=== PATIENT | female | born 1990 | race American Indian/Alaskan Native ===

== ENCOUNTER 2019-09-02 17:53 | Emergency (ER) | payer SELFPAY ==
[2019-09-02] MEDS ORDERED: NACL 0.9% 1000 ML 1,000 ML IV ONE (19:45)
[2019-09-02] MEDS ORDERED: ZOFRAN IV STA (19:45)
--- NOTE | 2019-09-02 19:45 | Emergency Department Report ---
Blank Doc - Documentation Documentation: Woke with sweats, chills, shaking, vomiting, and productive cough. This initial assessment/diagnostic orders/clinical plan/treatment(s) is/are subject to change based on patient's health status, clinical progression and re- assessment by fellow clinical providers in the ED. Further treatment and workup at subsequent clinical providers discretion. Patient/guardians urged not to elope from the ED as their condition may be serious if not clinically assessed and managed. Initial orders include: tachycardia labs and fluids
[2019-09-02 20:14] LABS: Basophils % (Auto) 0.3 % (0.0-1.8); Eosinophils % (Auto) 0.2 % (0.0-4.3); Hematocrit 39.2 % (30.3-42.9); Hemoglobin 13.4 gm/dl (10.1-14.3); Lymphocytes # (Auto) 0.7 K/mm3 (1.2-5.4); Lymphocytes % (Auto) 7.9 % (13.4-35.0); Mean Corpuscular HGB Conc 34 % (30-34); Mean Corpuscular Volume 81 fl (79-97); Monocytes # (Auto) 0.4 K/mm3 (0.0-0.8); Monocytes % (Auto) 4.6 % (0.0-7.3); Platelet Count 148 K/mm3 (140-440); Red Blood Count 4.85 M/mm3 (3.65-5.03); Red Cell Distribution Width 13.5 % (13.2-15.2)
[2019-09-02 20:43] LABS: Alanine Aminotransferase 13 units/L (7-56); Albumin 4.3 g/dL (3.9-5); BUN/Creatinine Ratio 17; Blood Urea Nitrogen 12 mg/dL (7-17); Calcium 9.1 mg/dL (8.4-10.2); Hemolysis Index 9
--- NOTE | 2019-09-02 20:54 | Emergency Department Report ---
Minor Respiratory - HPI Duration: Today Pain Location: Facial, Nose Severity: moderate Minor Respiratory: Yes Rhinorrhea, Yes Cough, Yes Sick Contacts, Yes Fever, No Sore Throat, No Able to Tolerate Fluids, No Ear Pain, No Hemoptysis, No Chest Pa in, No Shortness of Breath Other History: This is a 29-year-old -[place] female who presents to the emergency room with fever, chills, cough, vomiting, headache, and fatigue since 2 AM this morning. Patient states she started having myalgia this afternoon. Patient states she recently recovered from pneumonia and reports symptoms are similar to the last time. She isn't taking anything for symptomatic relief. She denies diarrhea, abdominal pain, sore throat, or dyspnea. <ROXY XIONGA GETACHEW - Last Filed: 09/04/19 05:57> <JESSE BUSTAMANTE P - Last Filed: 09/05/19 16:12> - HPI Chief Complaint: Fever Stated Complaint: FLU LIKE SYM Time Seen by Provider: 09/02/19 19:43 ED Review of Systems ROS: Stated complaint: FLU LIKE SYM Other details as noted in HPI Constitutional: chills, fever ENT: congestion. denies: ear pain, throat pain Respiratory: cough. denies: shortness of breath, wheezing Cardiovascular: denies: chest pain, palpitations Gastrointestinal: nausea, vomiting. denies: abdominal pain, diarrhea Musculoskeletal: myalgia. denies: back pain, joint swelling, arthralgia Skin: denies: rash, lesions Neurological: headache. denies: weakness, paresthesias Psychiatric: denies: anxiety, depression <IDRIS XIONG - Last Filed: 09/04/19 05:57> ROS: Stated complaint: FLU LIKE SYM Other details as noted in HPI <JESSE BUSTAMANTE P - Last Filed: 09/05/19 16:12> ED Past Medical Hx - Past Medical History Previous Medical History?: No - Surgical History Past Surgical History?: No - Social History Smoking Status: Current Every Day Smoker Substance Use Type: None <ROXY XIONGA GETACHEW - Last Filed: 09/04/19 05:57> <JESSE BUSTAMANTE P - Last Filed: 09/05/19 16:12> - Medications Home Medications: Home Medications Medication Instructions Recorded Confirmed Last Taken Type Benzonatate [Tessalon Perles] 100 mg PO Q8HR PRN #30 capsule 09/02/19 Unknown Rx Fluticasone [Flonase] 1 spray NS QDAY #1 bottle 09/02/19 Unknown Rx Sulfamethoxazole/Trimethoprim 1 each PO BID #6 tablet 09/02/19 Unknown Rx [Bactrim DS TAB] Minor Respiratory Exam - Exam General: Vital signs noted. No distress. Alert and acting appropriately. HEENT: Yes Pharyngeal Erythema (erythematous posterior pharynx, uvula midline), Yes Moist Mucous Membranes, Yes Rhinorrhea (turbinates congested with clear discharge), No Pharyngeal Exudates, No Conjuctival Injection, No Frontal Tenderness, No Maxillary Tenderness Ear: Neither TM Bulge, Neither TM Erythema, Neither EAC Pain, Neither EAC Discharge Neck: Yes Supple, No Adenopathy Lungs: Yes Good Air Exchange, No Wheezes, No Ronchi, No Stridor, No Cough, No Labored Respirations, No Retractions, No Use of Accessory Muscles, No Other Abnormal Lung Sounds Heart: Yes Regular, No Murmur Abdomen: Yes Normal Bowel Sounds, No Tenderness, No Peritoneal Signs Skin: No Rash, No Edema Neurologic: Alert and oriented, no deficits. Musculoskeletal: Unremarkable. <IDRIS XIONG - Last Filed: 09/04/19 05:57> - Exam General: Vital signs noted. No distress. Alert and acting appropriately. Neurologic: Alert and oriented, no deficits. Musculoskeletal: Unremarkable. <JESSE BUSTAMANTE - Last Filed: 09/05/19 16:12> ED Course Vital Signs 09/02/19 09/02/19 19:25 19:44 Temperature 98.4 F 98.5 F Pulse Rate 122 H 129 H Respiratory 20 20 Rate Blood Pressure 80/47 104/74 O2 Sat by Pulse 98 Oximetry <IDRIS XIONG - Last Filed: 09/04/19 05:57> Vital Signs 09/02/19 09/02/19 09/02/19 19:25 19:44 23:01 Temperature 98.4 F 98.5 F 98.3 F Pulse Rate 122 H 129 H 98 H Respiratory 20 20 16 Rate Blood Pressure 80/47 104/74 Blood Pressure 125/68 [Left] O2 Sat by Pulse 98 100 Oximetry <JESSE BUSTAMANTE - Last Filed: 09/05/19 16:12> ED Medical Decision Making - Lab Data Result diagrams: 09/02/19 19:56 09/02/19 19:56 Lab Results 09/02/19 09/02/19 09/02/19 Range/Units 19:56 19:56 20:43 WBC 9.2 (4.5-11.0) K/mm3 RBC 4.85 (3.65-5.03) M/mm3 Hgb 13.4 (10.1-14.3) gm/dl Hct 39.2 (30.3-42.9) % MCV 81 (79-97) fl MCH 28 (28-32) pg MCHC 34 (30-34) % RDW 13.5 (13.2-15.2) % Plt Count 148 (140-440) K/mm3 Lymph % (Auto) 7.9 L (13.4-35.0) % [place] % (Auto) 4.6 (0.0-7.3) % Eos % (Auto) 0.2 (0.0-4.3) % Baso % (Auto) 0.3 (0.0-1.8) % Lymph # 0.7 L (1.2-5.4) K/mm3 [place] # 0.4 (0.0-0.8) K/mm3 Eos # 0.0 (0.0-0.4) K/mm3 Baso # 0.0 (0.0-0.1) K/mm3 Seg Neutrophils % 87.0 H (40.0-70.0) % Seg Neutrophils # 8.0 H (1.8-7.7) K/mm3 Sodium 136 L (137-145) mmol/L Potassium 3.6 (3.6-5.0) mmol/L Chloride 99.7 (98-107) mmol/L Carbon Dioxide 22 (22-30) mmol/L Anion Gap 18 mmol/L BUN 12 (7-17) mg/dL Creatinine 0.7 (0.7-1.2) mg/dL Estimated GFR > 60 ml/min BUN/Creatinine Ratio 17 % Glucose 89 (65-100) mg/dL Calcium 9.1 (8.4-10.2) mg/dL Total Bilirubin 0.70 (0.1-1.2) mg/dL AST 20 (5-40) units/L ALT 13 (7-56) units/L Alkaline Phosphatase 50 (35-129) units/L Total Protein 8.1 (6.3-8.2) g/dL Albumin 4.3 (3.9-5) g/dL Albumin/Globulin Ratio 1.1 % Lipase 7 L (13-60) units/L Urine Color [place] (Yellow) Urine Turbidity Cloudy (Clear) Urine pH 5.0 (5.0-7.0) Ur Specific [place] 1.024 (1.003-1.030) Urine Protein 30 mg/dl (Negative) mg/dL Urine Glucose (UA) Neg (Negative) mg/dL Urine Ketones 20 (Negative) mg/dL Urine Blood Lg (Negative) Urine Nitrite Neg (Negative) Urine Bilirubin Neg (Negative) Urine Urobilinogen 2.0 (<2.0) mg/dL Ur Leukocyte Esterase Lg (Negative) Urine WBC (Auto) 151.0 H (0.0-6.0) /HPF Urine RBC (Auto) 20.0 (0.0-6.0) /HPF U Epithel Cells (Auto) 5.0 (0-13.0) /HPF Urine Bacteria (Auto) 3+ (Negative) /HPF Urine Mucus 3+ /HPF Urine HCG, Qual Negative (Negative) - Medical Decision Making Patient examined by me and stable. No distress noted. Vitals normal. Labs obtained. Urine positive for urinary track infection. All other labs are unremarkable. Patient will be treated for upper respiratory infection and UTI. Start bactrim DS, flonase, benzonatate, and zofran. Reviewed results and ER plan with patient. Discharged home stable. Follow up with Primary Care Azra garcia in 2-3 days. <IDRIS XIONG - Last Filed: 09/04/19 05:57> - Lab Data Result diagrams: 09/02/19 19:56 09/02/19 19:56 - Medical Decision Making Attestation: Available for consultation <JESSE BUSTAMANTE P - Last Filed: 09/05/19 16:12> Critical care attestation.: If time is entered above; I have spent that time in minutes in the direct care of this critically ill patient, excluding procedure time. <IDRIS XIONG - Last Filed: 09/04/19 05:57> Critical care attestation.: If time is entered above; I have spent that time in minutes in the direct care of this critically ill patient, excluding procedure time. <JESSE BUSTAMANTE P - Last Filed: 09/05/19 16:12> ED Disposition Is pt being admited?: No Time of Disposition: 21:45 <IDRIS XIONG - Last Filed: 09/04/19 05:57> Is pt being admited?: No <JESSE BUSTAMANTE P - Last Filed: 09/05/19 16:12> Clinical Impression: Upper respiratory infection Qualifiers: URI type: acute nasopharyngitis (common cold) Qualified Code(s): J00 - Acute nasopharyngitis [common cold] Disposition: TO HOME OR SELFCARE Condition: Stable Instructions: Urinary Tract Infection in Women (ED), Upper Respiratory Infection (ED), Cold Symptoms (ED) Additional Instructions: Increase fluid intake and rest. Wash hands frequently. Continue taking Tylenol or ibuprofen to control fever. F/U with Primary Care Provider. Return to ER if fever, SOB, or difficulty breathing after 48 hours of supportive care. Prescriptions: Sulfamethoxazole/Trimethoprim [Bactrim DS TAB] 1 each PO BID #6 tablet Fluticasone [Flonase] 1 spray NS QDAY #1 bottle Benzonatate [Tessalon Perles] 100 mg PO Q8HR PRN #30 capsule PRN Reason: Cough Referrals: MEGAN GODFREY MD [Primary Care Provider] - 3-5 Days ASHLEE NUÑEZ DO [Staff Physician] - 3-5 Days [facility] [Outside] - 3-5 Days Forms: Work/School Release Form(ED)
[2019-09-02 21:16] LABS: Bacteria,Urine 3+ /HPF (Negative); Bilirubin,Urine NEG (Negative); Blood,Urine LG (Negative); Color,Urine Amber (Yellow); Mucus,Urine 3+ /HPF
[2019-09-02 21:36] LABS: HCG Qualitative,Urine Negative (Negative)
[2019-09-02 23:02] VITALS: BP 125/68
== END 2019-09-02 23:03 | disposition home or self-care (01) ==
LOC: ED 17:53
DX: J06.9 Acute upper respiratory infection, unspecified (principal); F17.200 Nicotine dependence, unspecified, uncomplicated
CPT/HCPCS: 36415; 80053; 81001; 81025; 83690; 85025; 96361; 96374; 99283; J2405; J7030

== ENCOUNTER 2021-08-10 02:33 | Observation (INO) | payer MEDICAID ==
[2021-08-10] MEDS ORDERED: ONDANSETRON 4 MG/2 ML INJ IV ONE (03:08)
[2021-08-10] MEDS ORDERED: SODIUM CHLORIDE 0.9% 1000 ML 1,000 ML IV ONE (03:08)
[2021-08-10] MEDS ORDERED: HYDROmorphone 1 MG/1 ML INJ IV ONE (03:08)
--- NOTE | 2021-08-10 03:11 | Emergency Department Report ---
ED Abdominal Pain HPI - General Chief Complaint: Abdominal Pain Stated Complaint: ABD PAIN PUI?: No Time Seen by Provider: 08/10/21 03:06 Source: EMS Mode of arrival: Stretcher Limitations: No Limitations - History of Present Illness Initial Comments: Patient is a 31-year-old female that presents emergency room with complaints of abdominal pain. Patient states her abdominal pain started 5 hours ago. Patient states her abdominal pain is worsening. Patient states that her right lower quadrant radiating to her suprapubic region. Patient states she is 1 month . Patient states she is already had ultrasound to confirm IUP. Patient denies vaginal bleeding. Patient denies vaginal discharge. Patient complains of nausea. Patient denies vomiting. Patient denies fever and chills. Patient states the pain is a 10 out of 10. Patient states is severe. Patient states the pain is better with rest and worse with movement. Patient denies recent travel. Patient denies recent international travel. Patient denies exposure to the novel coronavirus. Patient denies sick contacts. Patient denies fever and chills. Patient denies cough. Patient denies diarrhea. Patient denies coming in contact with anybody with symptoms of the novel coronavirus. MD Complaint: abdominal pain -: Sudden Location: RLQ Radiation: suprapubic Migration to: no migration Severity: severe Quality: stabbing Consistency: constant Improves With: rest Worsens With: movement Associated Symptoms: nausea. denies: vomiting, diarrhea, fever, chills, constipation, dysuria, hematemesis, hematochezia, melena, hematuria, anorexia, syncope - Related Data LMP (females 10-50): Previous Rx's Medication Instructions Recorded Last Taken Type Benzonatate [Tessalon Perles] 100 mg PO Q8HR PRN #30 capsule 09/02/19 Unknown Rx Fluticasone [Flonase] 1 spray NS QDAY #1 bottle 09/02/19 Unknown Rx Sulfamethoxazole/Trimethoprim 1 each PO BID #6 tablet 09/02/19 Unknown Rx [Bactrim DS TAB] Allergies Allergy/AdvReac Type Severity Reaction Status Date / Time morphine Allergy Hives Verified 09/02/19 17:55 ED Review of Systems ROS: Stated complaint: ABD PAIN Other details as noted in HPI Constitutional: denies: chills, fever Eyes: denies: eye pain, eye discharge, vision change ENT: denies: ear pain, throat pain Respiratory: denies: cough, shortness of breath, wheezing Cardiovascular: denies: chest pain, palpitations Endocrine: no symptoms reported Gastrointestinal: as per HPI, abdominal pain, nausea. denies: diarrhea Genitourinary: denies: urgency, dysuria, discharge Musculoskeletal: denies: back pain, joint swelling, arthralgia Skin: denies: rash, lesions Neurological: denies: headache, weakness, paresthesias Psychiatric: denies: anxiety, depression Hematological/Lymphatic: denies: easy bleeding, easy bruising ED Past Medical Hx - Past Medical History Previous Medical History?: No - Surgical History Past Surgical History?: No - Family History Family history: no significant - Social History Smoking Status: Current Every Day Smoker Substance Use Type: None - Medications Home Medications: Home Medications Medication Instructions Recorded Confirmed Last Taken Type Benzonatate [Tessalon Perles] 100 mg PO Q8HR PRN #30 capsule 09/02/19 Unknown Rx Fluticasone [Flonase] 1 spray NS QDAY #1 bottle 09/02/19 Unknown Rx Sulfamethoxazole/Trimethoprim 1 each PO BID #6 tablet 09/02/19 Unknown Rx [Bactrim DS TAB] ED Physical Exam - General Limitations: No Limitations General appearance: alert, in no apparent distress - Head Head exam: Present: atraumatic, normocephalic - Eye Eye exam: Present: normal appearance - ENT ENT exam: Present: mucous membranes moist - Neck Neck exam: Present: normal inspection - Respiratory Respiratory exam: Present: normal lung sounds bilaterally. Absent: respiratory distress - Cardiovascular Cardiovascular Exam: Present: regular rate, normal rhythm. Absent: systolic murmur, diastolic murmur, rubs, gallop - GI/Abdominal GI/Abdominal exam: Present: soft, tenderness (Right lower quadrant tenderness to palpation.), normal bowel sounds - Extremities Exam Extremities exam: Present: normal inspection - Back Exam Back exam: Present: normal inspection - Neurological Exam Neurological exam: Present: alert, oriented X3 - Psychiatric Psychiatric exam: Present: normal affect, normal mood - Skin Skin exam: Present: warm, dry, intact, normal color. Absent: rash ED Course Vital Signs 08/10/21 02:41 Temperature 98.0 F Pulse Rate 89 Respiratory 18 Rate Blood Pressure 129/89 O2 Sat by Pulse 99 Oximetry - Reevaluation(s) Reevaluation #1: Patient states she is feeling much better. 08/10/21 04:35 Reevaluation #2: I discussed all results with patient. I discussed plan of care with patient. Patient agrees with plan of care and admission. Patient to be admitted to the [employer] service. 08/10/21 05:51 - Consultations Consultation #1: I discussed the case with Dr. Tran, with my WAX ENGRAVER. Dr. Tran states the patient is to be admitted to mother-baby and then goes to the operating room and she is on her way in. 08/10/21 05:50 ED Medical Decision Making - Lab Data Result diagrams: 08/10/21 03:31 08/10/21 03:31 - Radiology Data Radiology results: report reviewed EARLY OBSTETRICAL ULTRASOUND INDICATION: preg abd pain COMPARISON: None pertinent available TECHNIQUE: Transabdominal and endovaginal FINDINGS: Uterus measures 8.2 cm in length and shows no evidence of intrauterine . No fluid is seen within the endometrial canal. No gestational sac is seen within the uterus. Left ovary measures 5.2 cm in length and shows no abnormalities. Flow is not well determined. The right ovary measures 3.8 cm in length and shows a gestational sac with a fetus. By crown-rump length age is 7 weeks 2 days. Cardiac activity was documented at 118 bpm. A moderate amount of free fluid is seen that is not clearly bloody. IMPRESSION: Right ovarian ectopic - Medical Decision Making Patient is a 31-year-old female that presents emergency room with right lower quadrant pain. Patient's pain is severe. Patient also complained of nausea. Patient was given Dilaudid, fluids and Zofran immediately after initial evaluation and the patient responded well. Patient's pain dropped dramatically. Patient had labs done which were essentially unremarkable. Patient had a transvaginal ultrasound that showed an ectopic on the right ovary. I then discussed this patient's case with her WAX ENGRAVER group. Dr. Tran is excepted the patient to be admitted and Dr. Tran states she will take the patient to the operating room. Critical care time documented due to the multiple reassessments, prolonged time at the bedside, interpretation of diagnostics and labs. - Differential Diagnosis Type of , appendicitis, right lower quadrant pain, ovarian cyst, p Critical Care Time: Yes Critical care time in (mins) excluding proc time.: 35 Critical care attestation.: If time is entered above; I have spent that time in minutes in the direct care o f this critically ill patient, excluding procedure time. Critical Care Time: 35 minutes ED Disposition Clinical Impression: Ectopic Qualifiers: Location of ectopic : ovarian Intrauterine status: without intrauterine Laterality: right Qualified Code(s): O00.201 - Right ovarian without intrauterine Abdominal pain Qualifiers: Abdominal location: right lower quadrant Qualified Code(s): R10.31 - Right lower quadrant pain Disposition: ADMITTED INPATIENT Is pt being admited?: Yes Does the pt Need Aspirin: No Condition: Critical Instructions: Abdominal Pain (ED) Time of Disposition: 05:52
[2021-08-10 04:32] LABS: Basophils % (Auto) 0.3 % (0.0-1.8); Eosinophils # (Auto) 0.1 K/mm3 (0.0-0.4); Eosinophils % (Auto) 1.3 % (0.0-4.3); Hematocrit 33.9 % (30.3-42.9); Hemoglobin 11.1 gm/dl (10.1-14.3); Lymphocytes # (Auto) 1.3 K/mm3 (1.2-5.4); Mean Corpuscular HGB Conc 33 % (30-34); Mean Corpuscular Volume 76 fl (79-97); Monocytes # (Auto) 0.4 K/mm3 (0.0-0.8); Platelet Count 154 K/mm3 (140-440); Red Blood Count 4.47 M/mm3 (3.65-5.03); Red Cell Distribution Width 18.1 % (13.2-15.2)
--- NOTE | 2021-08-10 04:50 | Ultrasound Report ---
EARLY OBSTETRICAL ULTRASOUND INDICATION: preg abd pain COMPARISON: None pertinent available TECHNIQUE: Transabdominal and endovaginal FINDINGS: Uterus measures 8.2 cm in length and shows no evidence of intrauterine . No fluid is seen within the endometrial canal. No gestational sac is seen within the uterus. Left ovary measures 5.2 cm in length and shows no abnormalities. Flow is not well determined. The rig ht ovary measures 3.8 cm in length and shows a gestational sac with a fetus. By crown-rump length fet al age is 7 weeks 2 days. Cardiac activity was documented at 118 bpm. A moderate amount of free fluid is seen that is not clearly bloody. IMPRESSION: Right ovarian ectopic CRITICAL RESULT: Time of Discovery (ELECTRIC RANGE PREPARER/CDT): 0340 Time of Communication (ELECTRIC RANGE PREPARER/CDT): 034 Licensed Practitioner Receiving Report: Dr. Laird Read-Back Performed: Not applicable. Signer Name: Jarad Ocasio MD Signed: 08/10/2021 4:46 AM Workstation Name: [id number]
--- NOTE | 2021-08-10 04:50 | Ultrasound Report ---
EARLY OBSTETRICAL ULTRASOUND INDICATION: preg abd pain COMPARISON: None pertinent available TECHNIQUE: Transabdominal and endovaginal FINDINGS: Uterus measures 8.2 cm in length and shows no evidence of intrauterine . No fluid is seen within the endometrial canal. No gestational sac is seen within the uterus. Left ovary measures 5.2 cm in length and shows no abnormalities. Flow is not well determined. The rig ht ovary measures 3.8 cm in length and shows a gestational sac with a fetus. By crown-rump length fet al age is 7 weeks 2 days. Cardiac activity was documented at 118 bpm. A moderate amount of free fluid is seen that is not clearly bloody. IMPRESSION: Right ovarian ectopic CRITICAL RESULT: Time of Discovery (BRICK EXTRUDER OPERATOR/CDT): 0340 Time of Communication (BRICK EXTRUDER OPERATOR/CDT): 034 Licensed Practitioner Receiving Report: Dr. Laird Read-Back Performed: Not applicable. Signer Name: Jarad Ocasio MD Signed: 08/10/2021 4:46 AM Workstation Name: [id number]
[2021-08-10 04:58] LABS: Alanine Aminotransferase 8 units/L (7-56); Albumin 4.1 g/dL (3.9-5); BUN/Creatinine Ratio 21; Blood Urea Nitrogen 17 mg/dL (7-17); Calcium 8.9 mg/dL (8.4-10.2); Hemolysis Index 1
[2021-08-10 05:19] LABS: Bilirubin,Direct < 0.2 mg/dL (0-0.2)
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
--- NOTE | 2021-08-10 07:43 | Anesthesia Consultation ---
Anesthesia Consult and Med Hx Date of service: 08/10/21 - Airway Anesthetic Teeth Evaluation: Good ROM Head & Neck: Adequate Mental/Hyoid Distance: Adequate Mallampati Class: Class II Intubation Access Assessment: Good - Pulmonary Exam CTA: Yes - Cardiac Exam Cardiac Exam: No Murmur - Pre-Operative Health Status ASA Pre-Surgery Classification: ASA2, Emergency Proposed Anesthetic Plan: General - Pulmonary Hx Smoking: Yes (quit 3 wks) - Additional Comments Anesthesia Medical History Comments: H/H 11.1 33.9
--- NOTE | 2021-08-10 07:44 | Anesthesia Day of Surgery ---
Anesthesia Day of Surgery - Day of Surgery Patient Examined: Yes Patient H&P Reviewed: Yes Patient is NPO: Yes
[2021-08-10] MEDS ORDERED: BUPIVACAINE/PF (0.5%) 5 MG/1 ML 30 ML VIAL INFILTRATI ONE ×2 (07:48→09:41)
[2021-08-10] MEDS ORDERED: propofoL 200 MG/20 ML VIAL IV ONE (07:53)
[2021-08-10] MEDS ORDERED: fentaNYL 100 MCG/2 ML INJ ONE ×2 (07:53→09:07)
[2021-08-10] MEDS ORDERED: MIDAZOLAM 2 MG/2 ML INJ ONE (07:53)
[2021-08-10] MEDS ORDERED: LIDOCAINE MPF (2%) 20 MG/1 ML VIAL 5 ML ONE (07:54)
[2021-08-10] MEDS ORDERED: KETAMINE/STERILE WATER 50 MG/ML SYRINGE ONE (07:54)
[2021-08-10] MEDS ORDERED: LACTATED RINGERS 1,000 ML ONE ×2 (09:07→10:36)
[2021-08-10] MEDS ORDERED: oxyCODONE /ACETAMINOPHEN 5-325MG TAB PO PRN ×2 (09:24→10:18)
[2021-08-10] MEDS ORDERED: ONDANSETRON 4 MG/2 ML INJ IV PRN (09:24)
[2021-08-10] MEDS ORDERED: SODIUM CHLORIDE 0.9% IRR 1,500 ML BOTTLE IR ONE (09:42)
[2021-08-10] MEDS ORDERED: NEOSTIGMINE 10MG/10 ML INJ MDV ONE (09:42)
[2021-08-10] MEDS ORDERED: GLYCOPYRROLATE 0.4 MG/2 ML INJ ONE (09:42)
[2021-08-10] MEDS ORDERED: SODIUM CHLORIDE 0.9% IRRIG SOLN 2000 ML IR ONE (09:43)
[2021-08-10] MEDS ORDERED: ONDANSETRON 4 MG ODT TAB PO PRN (10:18)
[2021-08-10] MEDS ORDERED: ACETAMINOPHEN 325 MG TAB PO PRN (10:18)
--- NOTE | 2021-08-10 10:27 | Post Operative Note ---
Pre-op diagnosis: left ectopic Post-op diagnosis: same Findings: Omentum adherent to the anterior abdominal wall. Dense scar tissue noted in the left side of the pelvis. Clotted blood noted in the posterior cul-de-sac. Large left adnexal mass with adhesions noted. Dilated left fallopian tube. Left ovary visualized and normal in appearance. Right fallopian tube normal in appearance Procedure: Diagnostic laparoscopy, left salpingectomy Anesthesia: GETA Surgeon: VICKY GAUTHIER Gig Tender: LUCIANA LIM Estimated blood loss: other (150 ml) Pathology: list (left fallopian tube, left adnexal mass) Specimen disposition: to lab Condition: stable Disposition: PACU
[2021-08-10] MEDS ORDERED: SODIUM CHLORIDE 0.9% 1000 ML 1,000 ML ONE (10:37)
[2021-08-10] MEDS ORDERED: ROCURONIUM 50 MG/5 ML INJ IV ONE (10:45)
[2021-08-10] MEDS ORDERED: dexAMETHasone 20 MG/5 ML VIAL ONE (10:45)
[2021-08-10] MEDS ORDERED: SUCCINYLCHOLINE CHLORIDE 200 MG/10 ML INJ MDV ONE (10:45)
[2021-08-10] MEDS ORDERED: ONDANSETRON 4 MG/2 ML INJ ONE (10:45)
[2021-08-10] MEDS: HYDROmorphone 1 MG/1 ML INJ IV PRN ×2 (10:52→11:02)
--- NOTE | 2021-08-10 11:51 | Post Anesthesia Evaluation ---
- Post Anesthesia Evaluation Patient Participated: Yes Airway Patent: Yes Stable Respiratory Function: Yes Nausea/Vomiting: No Temp > 96.8F: Yes Pain Manageable: Yes Adequeate Hydration: Yes Anesthesia Complications: No
--- NOTE | 2021-08-10 16:17 | Discharge Summary ---
Providers - Providers Date of Admission: 08/10/21 05:52 Date of discharge: 08/10/21 Attending physician: VICKY GAUTHIER MD none Primary care physician: CURTAIN STITCHER Hospitalization Reason for admission: Ectopic Condition: Critical Procedures: Diagnostic laparoscopy, left salpingectomy Hospital course: Patient presented with abdominal pain. Diagnosed with ectopic . To OR for diagnostic laproscopy. See operative report for additional details. Patient tolerated procedure well. Discharged home on POD# 0 in stable condition. Disposition: 01 HOME / SELF CARE / HOMELESS Final Discharge Diagnosis (Prints w/discharge instructions): Left ectopic Time spent for discharge: 30 minutes - Discharge Diagnoses (1) Ectopic Status: Acute Qualifiers: Location of ectopic : ovarian Intrauterine status: without intrauterine Laterality: left Qualified Code(s): O00.202 - Left ovarian without intrauterine Core Measure Documentation - Palliative Care Palliative Care/ Comfort Measures: Not Applicable - Core Measures Any of the following diagnoses?: none - VTE Discharge Requirements Deep Vein Thrombosis/Pulmonary Embolism Present on Admission: No Has pt received <5 days of overlap therapy or INR<2.0: No Anticoagulant overlap therapy prescribed at discharge: No Contraindication No Overlap Therapy order at DC: Not Indicated - Heart Failure Discharge Requirements SARAH/ARB for LVSD if EF <40%: Not Applicable Exam - Constitutional Vitals: Temp Pulse Resp BP Pulse Ox 97.3 F L 85 20 121/75 100 08/10/21 11:10 08/10/21 10:45 08/10/21 11:10 08/10/21 11:10 08/10/21 11:10 General appearance: Present: no acute distress - Respiratory Respiratory effort: normal - Extremities Extremities: no ischemia, No edema - Abdominal General gastrointestinal: Present: soft, tender Female genitourinary: Present: deferred, normal - Psychiatric Psychiatric: appropriate mood/affect (incisions x3 C/D/I) Plan Activity: advance as tolerated (pelvic rest x4 weeks) Weight Bearing Status: Full Weight Bearing Diet: regular Wound: keep clean and dry Follow up with: PRIMARY CARE, [Primary Care Provider] - 7 Days Forms: [facility] Discharge Summary Prescriptions: oxyCODONE [roxiCODONE] 5 mg PO Q6HR PRN #12 tablet PRN Reason: Pain Acetaminophen [Tylenol] 625 mg PO Q4HR #60 capsule
--- NOTE | 2021-08-10 16:17 | Operative Report ---
Operative Report Operative Report: DATE OF OPERATION: 08/10/2021 PREOPERATIVE DIAGNOSES: 1. Ectopic POSTOPERATIVE DIAGNOSES: 1. Left ruptured ectopic 2. Hemoperitoneum 3. Pelvic adhesions PROCEDURE: Diagnostic laparoscopy, left salpingectomy SURGEON: Shelley Tran MD OBSTETRICS GYN: Mya Pruett MD ANESTHESIA: MIKA ESTIMATED BLOOD LOSS: 150 ml DRAINS: None. UOP: 200 ml at the start of the case COMPLICATIONS: None. FINDINGS: Omental adhesions to the anterior abdominal wall. Dense scar tissue noted in the left side of the pelvis. Clotted blood in the posterior cul-de-sac. Large left adnexal mass encompassed in adhesion. Dilated leftt fallopian tube. LEft ovary visualized and normal in appearance. Right fallopian tube and ovary normal in appearance. TECHNIQUE: The patient was seen in the Holding Room. The risks, benefits, complications, treatment options, and expected outcomes were discussed with the patient. The patient concurred with the proposed plan, giving informed consent. The patient was taken to Operating Room, identified as Emilie Fontaine and the procedure verified. A Time Out was held and the above information confirmed. SCD's were in place and connected. After induction of anesthesia, the patient was placed in dorsal lithotomy position. The patient was then prepped and draped in the usual sterile manner. The bladder was drained with a red rubber catheter. A sponge stick was placed in the vagina for uterine manipulation. Attention was then turned to the abdomen. A stab incision was made in the umbilicus with the scalpel. The anterior abdominal wall was elevated with towel clamps and a Veress needle was inserted. Saline drop test confirmed entry into the abdomen. The insufflator was attached was initial pressures were < 5 mmHg. The insufflator was set to high flow to maintain an intra-abdominal pressure of 15 mm Hg. Once insufflation was complete, a 12 mm vertical incision was made in the umbilicus. A 12 mm trocar was then inserted under direct visualization using a 5 mm 0 degree scope. A survey of the abdomen revealed the above findings. A 5 mm trocar was placed in the right lower quadrant. The suction woodworking shop hand was used to remove blood from the abdomen. A probe was then used to assist in evaluation of the right adnexa which was normal in appearance. A grasper was introduced and attention was turned to the fallopian tubes. The right tube was traced from its insertion in the uterus to the fimbriae and noted to be normal in appearance. The same was done with the left tube, but it was noted to be encased in adhesions with a large mass at the end. The decision was made to remove the left tube. An additional 5mm port was placed suprapubically. The mass was then grasped and from the tube using the Ligasure device. It was then placed in the anterior cul-de-sac. The tube was then serially cut and coagulated using the Ligasure and removed at its insertion in the uterus. It was then removed from the abdomen. A 10 mm Endocatch bag was introduced into the abdomen, the adnexal mass was placed inside, and the bag was removed under direct visualization. The tubal stump was cauterized. Excellent hemostasis was noted. The abdomen and pelvis was then irrigated and the clot dissolved and suctioned. A final survey was made and hemostasis was confirmed. All instruments were removed from the abdomen. The pneumoperitoneum was decompressed and the laparoscopic trocars were removed. The fascia at the 12-mm trocar site was reapproximated with 0 Vicryl. The skin incisions were closed using 4-0 Monocryl. Dermabond was applied. The final sponge, needle and instrument counts were correct. The patient tolerated the procedure well and was awakened from her anesthetic, extubated and taken to the recovering room in stable condition.
[2021-08-10 17:05] VITALS: BP 121/65
== END 2021-08-10 18:24 | disposition home or self-care (01) ==
LOC: ED 02:33 → OB 05:52
PROVIDERS: ADMIT Student in an Organized Health Care Education/Training Program; ATTEND Student in an Organized Health Care Education/Training Program
DX: O00.201 Right ovarian pregnancy without intrauterine pregnancy (principal); R10.9 Unspecified abdominal pain; K66.1 Hemoperitoneum; Z98.891 History of uterine scar from previous surgery; Z3A.01 Less than 8 weeks gestation of pregnancy
CPT/HCPCS: 36415; 58661; 76801; 76817; 80048; 80076; 84702; 85025; 86850; 86900; 86901; 88305; 96361; 96374; 96375; 99291; A4217; G0378; J0330; J1100; J1170; J2250; J2405; J2704; J2710; J3010; J3490; J7030; J7120

== ENCOUNTER 2022-02-23 15:32 | Emergency (ER) | payer MEDICAID ==
--- NOTE | 2022-02-23 16:21 | Emergency Department Report ---
HPI - General Chief Complaint: OB/Uterine Contractions Time Seen by Provider: 02/23/22 16:06 - HPI HPI: Room 25 Patient is a 31-year-old female present with chief complaint of abdominal pain. Patient is approximately 19 weeks gestational age and states for the past 2 days she has had intermittent diffuse tightening/cramping of her abdomen. Patient states this feels different from contractions as it is much senior patient account representative. Patient states she has cystic cramping every 10 to 15 minutes for the past 2 days and usually lasts just less than 5 minutes each episode. Patient denies vaginal bleeding or dysuria. Patient denies history of fever. Patient admits to nausea but denies vomiting. The patient states she contacted her [facility] who in turn told her to come to the emergency department. ED Past Medical Hx - Past Medical History Hx Sickle Cell Disease: Yes - Surgical History Additional Surgical History: D&C - Family History Family history: no significant - Social History Smoking Status: Former Smoker (None x1 month) Substance Use Type: None - Medications Home Medications: Home Medications Medication Instructions Recorded Confirmed Last Taken Type Benzonatate [Tessalon Perles] 100 mg PO Q8HR PRN #30 capsule 09/02/19 Unknown Rx Fluticasone [Flonase] 1 spray NS QDAY #1 bottle 09/02/19 Unknown Rx Sulfamethoxazole/Trimethoprim 1 each PO BID #6 tablet 09/02/19 Unknown Rx [Bactrim DS TAB] Acetaminophen [Tylenol] 625 mg PO Q4HR #60 capsule 08/10/21 Unknown Rx oxyCODONE [roxiCODONE] 5 mg PO Q6HR PRN #12 tablet 08/10/21 Unknown Rx Nitrofurantoin [place]/M-Cryst 100 mg PO Q12HR #14 capsule 02/23/22 Unknown Rx [Macrobid CAP] ED Review of Systems ROS: Stated complaint: 19 WKS /ABD PN/DIZZINESS Other details as noted in HPI Constitutional: diaphoresis Eyes: denies: eye pain ENT: denies: throat pain Respiratory: denies: shortness of breath Cardiovascular: denies: chest pain Endocrine: no symptoms reported Gastrointestinal: abdominal pain, nausea. denies: vomiting Genitourinary: denies: dysuria, abnormal menses Musculoskeletal: denies: back pain Neurological: denies: headache Physical Exam - Physical Exam Vital Signs: Vital Signs 02/23/22 15:59 Temperature 98.8 F Pulse Rate 98 H Respiratory 20 Rate Blood Pressure 109/69 [Right] O2 Sat by Pulse 99 Oximetry Physical Exam: GENERAL: The patient is well-developed well-nourished female lying on stretcher not appearing to be in acute distress. [] HEENT: Normocephalic. Atraumatic. Extraocular motions are intact. Patient has moist mucous membranes. NECK: Supple. Trachea midline CHEST/LUNGS: Clear to auscultation. There is no respiratory distress noted. HEART/CARDIOVASCULAR: Regular. There is no tachycardia. There is no gallop rub or murmur. ABDOMEN: Abdomen is gravid with mild discomfort to palpation in the lower abdomen. No rebound or guard. Patient has normal bowel sounds. SKIN: There is no rash. There is no edema. There is no diaphoresis. NEURO: The patient is awake, alert, and oriented. The patient is cooperative. The patient has no focal neurologic deficits. The patient has normal speech. GCS 15 MUSCULOSKELETAL: There is no evidence of acute injury. ED Course Vital Signs 02/23/22 15:59 Temperature 98.8 F Pulse Rate 98 H Respiratory 20 Rate Blood Pressure 109/69 [Right] O2 Sat by Pulse 99 Oximetry - Consultations Consultation #1: 02/23/22 19:56 [facility] paged 02/23/22 20:50 Case discussed with [facility] Dr. Pedro-treat for UTI, Tylenol for pain and have patient follow-up in office this week ED Medical Decision Making - Lab Data Result diagrams: 02/23/22 18:47 02/23/22 18:47 - Radiology Data Radiology results: report reviewed (Pelvic ultrasound), image reviewed (Pelvic ultrasound) [address] [address] Ultrasound Report Signed Patient: ALEX COTTER MR#: [id number] : 1990 Acct:[id number] Age/Sex: 31 / F ADM Date: 02/23/22 Loc: ED Attending Dr: Ordering Physician: KRISTOPHER ADAMES MD Date of Service: 02/23/22 Procedure(s): US transvaginal Accession Number(s): [id number] cc: KRISTOPHER ADAMES MD ULTRASOUND OBSTETRIC LIMITED INDICATION / CLINICAL INFORMATION: Abdominal cramping/contractions. Clinical Gestational Age (GA) in weeks, days: 16 weeks 0 days TECHNIQUE: Transabdominal. Endovaginal COMPARISON: None available. F INDINGS: NUMBER: Single PRESENTATION: cephalic PLACENTA: posterior and free of the os. AMNIOTIC FLUID VOLUME: normal MEASUREMENTS: - Biparietal Diameter = 3.15 cm = 15 weeks, 6 days - Head Circumference = 11.6 cm = 15 weeks, 5 days - Abdominal Circumference = 11.54 cm = 17 weeks, 1 days - Femur Length = 2.02 cm = 16 weeks, 0 days - Estimated Weight (in grams, if calculated): 159 g - Heart Rate (beats per minute): 154 ADDITIONAL FINDINGS: Cervical length is 3.6 cm AVERAGE ULTRASOUND AGE (AUA) in weeks, days = 16 weeks 1 day IMPRESSION: 1. Single intrauterine with AUA of 16 weeks, 1 days 2. No significant sonographic abnormality. Signer Name: Dorcas oCllins MD Signed: 02/23/2022 5:28 PM Workstation Name: [id number] Transcribed By: JR Dictated By: Dorcas Collins MD Electronically Authenticated By: Dorcas Collins MD Signed Date/Time: 02/23/221727 DD/ 24 TD/TT: - Differential Diagnosis Abdominal pain, premature contractions, UTI, threatened Critical care attestation.: If time is entered above; I have spent that time in minutes in the direct care of this critically ill patient, excluding procedure time. ED Disposition Clinical Impression: , Round ligament pain, UTI (urinary tract infection) Disposition: 01 HOME / SELF CARE / HOMELESS Is pt being admited?: No Does the pt Need Aspirin: No Condition: Stable Instructions: and Urinary Tract Infection Additional Instructions: Return to the emergency department should you develop worsening symptoms, inability to tolerate food or liquids, high fever or any other concerns Prescriptions: Nitrofurantoin [place]/M-Cryst [Macrobid CAP] 100 mg PO Q12HR #14 capsule Referrals: [facility] [Provider Group] - 2-3 Days Time of Disposition: 20:52
--- NOTE | 2022-02-23 17:33 | Ultrasound Report ---
ULTRASOUND OBSTETRIC LIMITED INDICATION / CLINICAL INFORMATION: Abdominal cramping/contractions. Clinical Gestational Age (GA) in weeks, days: 16 weeks 0 days TECHNIQUE: Transabdominal. Endovaginal COMPARISON: None available. FINDINGS: NUMBER: Single PRESENTATION: cephalic PLACENTA: posterior and free of the os. AMNIOTIC FLUID VOLUME: normal MEASUREMENTS: - Biparietal Diameter = 3.15 cm = 15 weeks, 6 days - Head Circumference = 11.6 cm = 15 weeks, 5 days - Abdominal Circumference = 11.54 cm = 17 weeks, 1 days - Femur Length = 2.02 cm = 16 weeks, 0 days - Estimated Weight (in grams, if calculated): 159 g - Heart Rate (beats per minute): 154 ADDITIONAL FINDINGS: Cervical length is 3.6 cm AVERAGE ULTRASOUND AGE (AUA) in weeks, days = 16 weeks 1 day IMPRESSION: 1. Single intrauterine with AUA of 16 weeks, 1 days 2. No significant sonographic abnormality. Signer Name: Dorcas Collins MD Signed: 02/23/2022 5:28 PM Workstation Name: [id number]
[2022-02-23 18:56] LABS: Basophils % (Auto) 0.5 % (0.0-1.8); Eosinophils # (Auto) 0.1 K/mm3 (0.0-0.4); Eosinophils % (Auto) 1.4 % (0.0-4.3); Hematocrit 37.2 % (30.3-42.9); Hemoglobin 12.3 gm/dl (10.1-14.3); Lymphocytes # (Auto) 1.9 K/mm3 (1.2-5.4); Lymphocytes % (Auto) 18.5 % (13.4-35.0); Mean Corpuscular HGB Conc 33 % (30-34); Mean Corpuscular Volume 82 fl (79-97); Monocytes # (Auto) 0.5 K/mm3 (0.0-0.8); Monocytes % (Auto) 5.4 % (0.0-7.3); Platelet Count 208 K/mm3 (140-440); Red Blood Count 4.52 M/mm3 (3.65-5.03); Red Cell Distribution Width 15.5 % (13.2-15.2)
[2022-02-23 19:12] LABS: Alanine Aminotransferase 8 units/L (7-56); Albumin 3.5 g/dL (3.9-5); Blood Urea Nitrogen 7 mg/dL (7-17); Calcium 9.1 mg/dL (8.4-10.2); Hemolysis Index 29
[2022-02-23 19:15] LABS: BUN/Creatinine Ratio 14
[2022-02-23 19:52] LABS: Bacteria,Urine 1+ /HPF (Negative); Bilirubin,Urine NEG (Negative); Blood,Urine NEG (Negative); Color,Urine Yellow (Yellow); Mucus,Urine FEW /HPF; Protein,Urine <15 mg/dL mg/dL (Negative); Urobilinogen,Urine < 2.0 mg/dL (<2.0)
[2022-02-23] MEDS ORDERED: ACETAMINOPHEN 325 MG TAB PO ONE (19:55)
[2022-02-23 21:18] VITALS: BP 116/74
== END 2022-02-23 21:17 | disposition home or self-care (01) ==
LOC: ED 15:32
DX: O26.892 Other specified pregnancy related conditions, second trimester (principal); O23.42 Unspecified infection of urinary tract in pregnancy, second trimester; Z3A.19 19 weeks gestation of pregnancy; Z87.891 Personal history of nicotine dependence
CPT/HCPCS: 36415; 76805; 76817; 76830; 80053; 81001; 84702; 85025; 87086; 99284

== ENCOUNTER 2022-04-08 19:39 | Outpatient (CLI) | payer MEDICAID ==
[2022-04-08 20:41] LABS: Bacteria,Urine 1+ /HPF (Negative); Bilirubin,Urine NEG (Negative); Blood,Urine NEG (Negative); Color,Urine Yellow (Yellow); Mucus,Urine FEW /HPF; Protein,Urine <15 mg/dL mg/dL (Negative)
[2022-04-08 21:48] VITALS: BP 108/64
[2022-04-08] MEDS ORDERED: LACTATED RINGERS 1,000 ML IV ONE (22:00)
== END 2022-04-08 21:48 | disposition home or self-care (01) ==
LOC: TRG 19:39 → APU 19:40 → TRG 21:48
PROVIDERS: ATTEND Obstetrics & Gynecology
DX: O26.892 Other specified pregnancy related conditions, second trimester (principal); R10.9 Unspecified abdominal pain; Z3A.22 22 weeks gestation of pregnancy
CPT/HCPCS: 59025; 81001

== ENCOUNTER 2022-06-16 15:00 | Outpatient (CLI) | payer MEDICAID ==
[2022-06-16] MEDS ORDERED: LACTATED RINGERS 500 ML IV ONE (15:24)
[2022-06-16 16:23] LABS: Color,Urine Straw (Yellow); Mucus,Urine FEW /HPF; RBC,Urine < 1.0 /HPF (0.0-6.0)
[2022-06-16 16:24] LABS: Bilirubin,Urine Negative (Negative); Blood,Urine Negative (Negative); PH,Urine 5.5 (5.0-7.0); Protein,Urine <15 mg/dL mg/dL (Negative); Urobilinogen,Urine < 2.0 mg/dL (<2.0)
--- NOTE | 2022-06-16 19:21 | Ultrasound Report ---
US OB transvaginal INDICATION / CLINICAL INFORMATION: cervical length. COMPARISON: None available. FINDINGS: 3 images were obtained of the cervix. Cervix is closed measuring 3.2 cm. No images were obtained of t he remainder of the uterus or adnexa. IMPRESSION: 1. Cervical length is 3.2 cm. Signer Name: Nehemias Duran MD Signed: 06/16/2022 7:16 PM Workstation Name: [id number]
[2022-06-16 20:12] VITALS: BP 108/71
== END 2022-06-16 20:18 | disposition home or self-care (01) ==
LOC: TRG 15:00 → APU 15:02 → TRG 20:18
PROVIDERS: ATTEND Obstetrics & Gynecology
DX: O47.03 False labor before 37 completed weeks of gestation, third trimester (principal); Z3A.32 32 weeks gestation of pregnancy
CPT/HCPCS: 76817; 81001

== ENCOUNTER 2022-07-17 16:11 | Outpatient (CLI) | payer MEDICAID ==
[2022-07-17] MEDS ORDERED: LACTATED RINGERS 1,000 ML IV ONE (16:44)
[2022-07-17 18:07] LABS: Bacteria,Urine 1+ /HPF (Negative); Mucus,Urine 2+ /HPF
[2022-07-17 18:10] VITALS: BP 116/68
[2022-07-17 18:29] LABS: Color,Urine Amber (Yellow)
--- NOTE | 2022-07-18 07:04 | Ultrasound Report ---
LIMITED OBSTETRICAL ULTRASOUND INDICATION: leaking fluid COMPARISON: 06/16/2022 FINDINGS: Single intrauterine is noted in a limited study. Cardiac activity was documented at 150 bpm. ANNA was calculated at 14.6 cm which is within normal limits. Fetus is in a cephalic posit ion. Placenta appears to be fundal and is free of the internal cervical os. Anatomic survey was not p erformed and dating was not performed. BIOPHYSICAL PROFILE breathing movements: 2/2 movements: 2/2 posture and tone tone: 2/2 Qualitative amniotic fluid volume: 2/2 Total score: 8/8, within normal limits Note: Study has just become available for interpretation. Signer Name: Jarad Ocasio MD Signed: 07/18/2022 7:00 AM Workstation Name: [id number]
== END 2022-07-17 19:30 | disposition home or self-care (01) ==
LOC: TRG 16:11 → APU 16:13 → TRG 19:30
PROVIDERS: ATTEND Obstetrics & Gynecology
DX: O42.913 Preterm premature rupture of membranes, unspecified as to length of time between rupture and onset of labor, third trimester (principal); O26.893 Other specified pregnancy related conditions, third trimester; R25.2 Cramp and spasm; Z3A.36 36 weeks gestation of pregnancy; Z87.891 Personal history of nicotine dependence
CPT/HCPCS: 59025; 76815; 76819; 81001; J7120; Q0177; 96360

== ENCOUNTER 2022-07-23 08:31 | Outpatient (CLI) | payer MEDICAID ==
[2022-07-23] MEDS ORDERED: LACTATED RINGERS 1,000 ML IV ONE (09:00)
[2022-07-23] MEDS ORDERED: ONDANSETRON 4 MG/2 ML INJ IV NR (09:03)
[2022-07-23 09:29] VITALS: BP 113/69
== END 2022-07-23 10:45 | disposition home or self-care (01) ==
LOC: TRG 08:31 → APU 08:33 → TRG 10:45
PROVIDERS: ATTEND Obstetrics & Gynecology
DX: O62.9 Abnormality of forces of labor, unspecified (principal); O21.2 Late vomiting of pregnancy; Z3A.37 37 weeks gestation of pregnancy
CPT/HCPCS: 59025; 96365; J2405; J7120; 96360

== ENCOUNTER 2022-07-27 07:53 | Inpatient (IN) | payer MEDICAID ==
[2022-07-27] MEDS ORDERED: miSOPROStol 200 MCG TAB ONE (08:00)
[2022-07-27] MEDS ORDERED: METHYLERGONOVINE MALEATE 0.2 MG/ML VIAL IM ONE (08:00)
[2022-07-27] MEDS ORDERED: OXYTOCIN 10 UNIT/1 ML INJ ONE (08:13)
[2022-07-27] MEDS ORDERED: miSOPROStol 200 MCG TAB PR PRN ×2 (08:40→09:46)
[2022-07-27] MEDS ORDERED: OXYTOCIN 10 UNIT/1 ML INJ IM PRN (08:40)
[2022-07-27] MEDS ORDERED: TERBUTALINE 1 MG/1 ML INJ SUB-Q PRN (08:40)
[2022-07-27] MEDS ORDERED: METHYLERGONOVINE MALEATE 0.2 MG/ML VIAL IM PRN (08:40)
[2022-07-27] MEDS ORDERED: ePHEDrine SULFATE 50 MG/1 ML INJ IV PRN ×3 (08:40→10:00)
[2022-07-27] MEDS ORDERED: MINERAL OIL 30 ML ORAL LIQD PO PRN (08:40)
[2022-07-27] MEDS ORDERED: LOPERAMIDE 2 MG CAP PO PRN ×2 (08:40→09:46)
[2022-07-27] MEDS ORDERED: CARBOPROST TROMETHAMINE 250 MCG/1 ML INJ IM PRN ×2 (08:40→09:46)
[2022-07-27] MEDS ORDERED: LACTATED RINGERS 1,000 ML IV SCH ×2 (08:45→11:00)
[2022-07-27] MEDS ORDERED: OXYTOCIN DRIP 30 UNITS/500 ML BAG IV SCH ×2 (09:00)
--- NOTE | 2022-07-27 09:23 | History and Physical Report ---
History of Present Illness Date of examination: 07/27/22 Chief complaint: labor Past History Past Medical History: no pertinent history Past Surgical History: section - Obstetrical History Expected Date of Delivery: 08/10/22 Actual Gestation: 38 Week(s) 0 Day(s) : 5 Medications and Allergies Allergies Allergy/AdvReac Type Severity Reaction Status Date / Time ibuprofen Allergy Severe SOB, Hive, Verified 08/10/21 07:52 Swelling codeine Allergy Unknown Unknown Verified 08/10/21 07:51 morphine Allergy Hives Verified 09/02/19 17:55 Home Medications Medication Instructions Recorded Confirmed Last Taken Type Benzonatate [Tessalon Perles] 100 mg PO Q8HR PRN #30 capsule 09/02/19 Unknown Rx Fluticasone [Flonase] 1 spray NS QDAY #1 bottle 09/02/19 Unknown Rx Sulfamethoxazole/Trimethoprim 1 each PO BID #6 tablet 09/02/19 Unknown Rx [Bactrim DS TAB] Acetaminophen [Tylenol] 625 mg PO Q4HR #60 capsule 08/10/21 Unknown Rx oxyCODONE [roxiCODONE] 5 mg PO Q6HR PRN #12 tablet 08/10/21 Unknown Rx Nitrofurantoin [place]/M-Cryst 100 mg PO Q12HR #14 capsule 02/23/22 Unknown Rx [Macrobid CAP] Active Meds: Active Medications Carboprost Tromethamine (Carboprost Tromethamine 250 Mcg/1 Ml Inj) 250 mcg IM O NCE PRN PRN Reason: Uterine Bleeding Ephedrine Sulfate (Ephedrine Sulfate 50 Mg/1 Ml Inj) 10 mg IV Q2M PRN PRN Reason: Hypotension Oxytocin/Sodium Chloride (Pitocin/Ns 30 Unit/500ml) 30 units in 500 mls @ 2 mls/hr IV TITR UZAIR; Protocol Lactated Ringer's (Lactated Ringers) 1,000 mls @ 125 mls/hr IV DIRECT UZAIR Oxytocin/Sodium Chloride (Pitocin/Ns 30 Unit/500ml) 30 units in 500 mls @ 40 mls/hr IV TITR UZAIR; Protocol Lidocaine (Lidocaine (2%) 20 Mg/1 Ml Vial 20 Ml Mdv) 20 ml INFILTRATI ONCE ONE Stop: 07/27/22 10:01 Loperamide HCl (Loperamide 2 Mg Cap) 2 mg PO ONCE PRN PRN Reason: give with Hemabate Methylergonovine Maleate (Methylergonovine Maleate 0.2 Mg/Ml Vial) 0.2 mg IM ONCE PRN PRN Reason: Uterine Bleeding Mineral Oil (Mineral Oil 30 Ml Oral Liqd) 30 ml PO QHS PRN PRN Reason: Constipation Misoprostol (Misoprostol 200 Mcg Tab) 800 mcg TN ONCE PRN PRN Reason: Uterine Bleeding Oxytocin (Oxytocin 10 Unit/1 Ml Inj) 10 unit IM ONCE PRN PRN Reason: Uterine Bleeding Terbutaline Sulfate (Terbutaline 1 Mg/1 Ml Inj) 0.25 mg SUB-Q ONCE PRN PRN Reason: Hyperstimulation/Hypertonicity - Vital Signs Vital signs: Vital Signs Pulse Pulse Ox 139 H 99 07/27/22 08:02 07/27/22 08:02 Temp Pulse Resp BP Pulse Ox 73 99 07/27/22 09:17 07/27/22 09:17 - Physical Exam Breasts: Positive: deferred Lungs: Positive: Normal air movement Abdomen: Positive: soft Genitourinary (Female): Positive: normal external genitalia Vulva: both: normal Results All other labs normal. Assessment and Plan - Patient Problems (1) 38 weeks gestation of Current Visit: Yes Status: Acute (2) , delivered Current Visit: Yes Status: Acute
--- NOTE | 2022-07-27 09:25 | Procedure Note ---
OB Delivery Note - Delivery Date of Delivery: 07/27/22 Surgeon: LUCIANA LIM Estimated blood loss: 300cc - Vaginal Delivery presentation: vertex Delivery position: OA Delivery monitor: external FHT, external uterine Route of delivery: Delivery placenta: spontaneous (intact) Episiotomy: none Delivery laceration: none Anesthesia: none - Infant A at 1 minute: 9 at 5 minutes: 9 Gender: Female (6lb 9oz)
[2022-07-27] MEDS ORDERED: fentaNYL 100 MCG/2 ML INJ IV PRN ×2 (09:53→10:01)
[2022-07-27] MEDS ORDERED: BUTORPHANOL 2 MG/1 ML INJ IV PRN (09:53)
[2022-07-27] MEDS ORDERED: ACETAMINOPHEN 325 MG TAB PO PRN ×2 (09:53→10:01)
[2022-07-27] MEDS ORDERED: LIDOCAINE (2%) 20 MG/1 ML VIAL 20 ML MDV INFILTRATI ONE ×2 (10:00→11:00)
[2022-07-27] MEDS ORDERED: NalbUPHINE 10 MG/1 ML INJ IV PRN (10:01)
[2022-07-27 10:18] LABS: Hematocrit 40.6 % (30.3-42.9); Hemoglobin 13.8 gm/dl (10.1-14.3); Mean Corpuscular HGB Conc 34 % (30-34); Mean Corpuscular Volume 84 fl (79-97); Platelet Count 229 K/mm3 (140-440); Red Blood Count 4.84 M/mm3 (3.65-5.03)
[2022-07-27] MEDS ORDERED: WITCH HAZEL/ GLYCERIN PAD TP PRN (11:41)
[2022-07-27] MEDS ORDERED: DOCUSATE SODIUM 100 MG CAP PO PRN (11:41)
[2022-07-27] MEDS ORDERED: ONDANSETRON 4 MG/2 ML INJ IV PRN (11:41)
[2022-07-27] MEDS ORDERED: MAGNESIUM HYDROXIDE (MOM) ORAL LIQD UDC PO PRN (11:41)
[2022-07-27] MEDS ORDERED: LANOLIN/ZINC/DIMETHICONE (LANSINOH) 7 GM TP PRN (11:41)
[2022-07-27] MEDS ORDERED: SENNOSIDES/DOCUSATE SODIUM 8.6/50 MG TAB PO PRN (11:41)
[2022-07-27] MEDS ORDERED: diphenhydrAMINE 25 MG CAP PO PRN (11:41)
[2022-07-27] MEDS ORDERED: PROMETHAZINE 25 MG TAB PO PRN (11:41)
[2022-07-27 11:45] LABS: Hepatitis C Virus Antibody Non-Reactive (NonReactive)
[2022-07-27] MEDS: ACETAMINOPHEN 500 MG TAB PO PRN ×2 (12:37→18:34)
[2022-07-27 17:27] LABS: Amphetamine Screen,Urine PRESUMPTIVE NEGATIVE; Benzodiazepines Screen,Urine PRESUMPTIVE NEGATIVE; Cannabinoid Screen,Urine PRESUMPTIVE POSITIVE; Cocaine Screen,Urine PRESUMPTIVE NEGATIVE; Methadone Screen,Urine PRESUMPTIVE NEGATIVE; Opiate Screen,Urine PRESUMPTIVE NEGATIVE
[2022-07-27 20:45] LABS: Hematocrit 34.9 % (30.3-42.9); Hemoglobin 11.7 gm/dl (10.1-14.3)
[2022-07-27 21:26] LABS: Basophils % (Auto) 0.1 % (0.0-1.8); Eosinophils # (Auto) 0.1 K/mm3 (0.0-0.4); Eosinophils % (Auto) 0.8 % (0.0-4.3); Hematocrit 35.1 % (30.3-42.9); Hemoglobin 11.8 gm/dl (10.1-14.3); Lymphocytes # (Auto) 2.1 K/mm3 (1.2-5.4); Lymphocytes % (Auto) 14.4 % (13.4-35.0); Mean Corpuscular HGB Conc 34 % (30-34); Mean Corpuscular Volume 85 fl (79-97); Monocytes # (Auto) 1.2 K/mm3 (0.0-0.8); Platelet Count 206 K/mm3 (140-440); Red Blood Count 4.16 M/mm3 (3.65-5.03); Red Cell Distribution Width 12.8 % (13.2-15.2)
[2022-07-27 21:47] LABS: Alanine Aminotransferase 17 units/L (7-56); Albumin 3.2 g/dL (3.9-5); Blood Urea Nitrogen 3 mg/dL (7-17); Calcium 8.3 mg/dL (8.4-10.2); Hemolysis Index 10
[2022-07-27 21:48] LABS: BUN/Creatinine Ratio 6
[2022-07-27] MEDS ORDERED: diphenhydrAMINE 50 MG/ML VIAL IV PRN (22:36)
--- NOTE | 2022-07-27 22:36 | Cat Scan Report ---
CT ABDOMEN AND PELVIS WITH CONTRAST INDICATION / CLINICAL INFORMATION: severe abdominal pain. TECHNIQUE: Axial CT images were obtained through the abdomen and pelvis after IV contrast. All CT sc ans at this location are performed using CT dose reduction for ALARA by means of automated exposure c ontrol. COMPARISON: None available. FINDINGS: LOWER CHEST: No significant abnormality. LIVER: No significant abnormality. GALLBLADDER: No significant abnormality. BILE DUCTS: No significant abnormality. PANCREAS: No significant abnormality. SPLEEN: No significant abnormality. ADRENALS: No significant abnormality. RIGHT KIDNEY / URETER: Mild pelvocaliectasis. Symmetric uptake and excretion. LEFT KIDNEY / URETER: Mild pelvocaliectasis. Symmetric uptake and excretion. STOMACH / SMALL BOWEL: No significant abnormality. COLON: No significant abnormality. APPENDIX: No significant abnormality. PERITONEUM: No free fluid. No free air. No fluid collection. LYMPH NODES: No significant adenopathy. AORTA / ARTERIES: No significant abnormality. IVC / VEINS: No significant abnormality. URINARY BLADDER: No significant abnormality. REPRODUCTIVE ORGANS: Uterus is enlarged extending approximately 2 cm above the umbilicus compatible w ith same day history. Anterior linear hypodense line likely represents prior scar . There is no significant widening of this finding. No significant periuterine blood or fluid collect ion to suggest hematoma/abscess. ADDITIONAL FINDINGS: None. SKELETAL SYSTEM: No significant abnormality. IMPRESSION: 1. Expected appearance. Small amount of fluid within the endometrial cavity to be correlat ed with exam and bleeding for retained placental products. Signer Name: Kendall Jackson MD Signed: 07/27/2022 10:31 PM Workstation Name: [id number]
[2022-07-27] MEDS ORDERED: D5W/LACTATED RINGERS 1,000 ML IV SCH (23:00)
--- NOTE | 2022-07-27 23:07 | Progress Note ---
Assessment and Plan - Patient Problems (1) 38 weeks gestation of Current Visit: Yes Status: Acute (2) , delivered Current Visit: Yes Status: Acute (3) Midepigastric pain Current Visit: Yes Status: Acute Plan to address problem: Pain improved significantly during CT scan. CT scan discussed with Dr. Enriquez report reviewed. Findings discussed with patient and visitor. No obvious evidence of uterine dehiscence or intra-abdominal bleeding. Will make n.p.o. for tonight, we will start IV fluid, will start Pepcid IV. Previous hospital visits were reviewed, patient states it was after her visit in August for the ectopic that she was diagnosed with an allergy to codeine and morphine. We will try Benadryl at this point for relaxation. Observe closely. Plan of care discussed with patient and visitor they both voiced understanding agrees to plan of care. Subjective - Subjective Date of service: 07/27/22 Principal diagnosis: Severe midepigastric pain Interval history: Shortly after MILA GALEANO was called on this patient arrived in the room the patient was writhing in pain. She was able to respond appropriately she complained of severe mid epigastric pain. She denies vaginal bleeding. Patient was diaphoretic. Patient denies vaginal bleeding and no bleeding was noted on her pad. Vital signs remained stable. Emergent CT scan was ordered. Patient was immediately taken down to CT scan to evaluate for intra-abdominal/pelvic bleeding possibly due to uterine rupture. Patient states she did eat some Irish fries and a couple bites of a hamburger. Patient states she did pass gas earlier today. She denied vomiting but did complain of mild nausea. She had no complaints of shortness of breath or chest pain. Objective - Vital Signs Latest vital signs: Vital Signs Temp Pulse Resp BP Pulse Ox Pulse Ox 07/27/22 15:27 97.8 F 79 20 110/75 94 07/27/22 11:15 99 07/27/22 10:09 61 118/72 07/27/22 10:07 60 100 07/27/22 10:02 62 99 07/27/22 09:57 76 100 07/27/22 09:52 68 100 07/27/22 09:47 63 99 07/27/22 09:42 64 100 07/27/22 09:37 73 100 07/27/22 09:32 59 L 100 07/27/22 09:30 67 89 07/27/22 09:27 70 100 07/27/22 09:22 63 98 07/27/22 09:17 73 99 07/27/22 09:12 75 99 07/27/22 09:07 69 100 07/27/22 09:02 86 100 07/27/22 08:57 75 100 07/27/22 08:52 80 100 07/27/22 08:47 69 100 07/27/22 08:42 78 100 07/27/22 08:37 81 100 07/27/22 08:32 93 H 99 07/27/22 08:27 95 H 99 07/27/22 08:22 92 H 99 07/27/22 08:17 87 100 07/27/22 08:12 88 95 07/27/22 08:09 79 93 07/27/22 08:07 84 99 07/27/22 08:02 139 H 99 Intake and Output 07/27/22 07/27/22 07/28/22 14:59 22:59 06:59 Intake Total 480 Output Total 400 Balance 80 Intake: Oral 480 Output: Urine 400 Void 400 Other: Total, Intake Amount 360 Total, Output Amount 400 Weight 86.636 kg Estimated Blood Loss 300 Patient Weight 07/28/22 06:59 Weight 86.636 kg - Exam Breasts: Present: deferred Lungs: Present: Normal air movement Abdomen: Present: soft, distention Uterus: Present: firm, fundal height below umbilicus (Approximately 2 fingerbreadth). Absent: tenderness Extremities: Present: normal. Absent: tenderness - Labs Labs: Abnormal lab results 07/27/22 07/27/22 07/27/22 Range/Units 20:18 21:29 Unknown WBC 14.7 H (4.5-11.0) K/mm3 RDW 12.8 L 13.0 L (13.2-15.2) % [place] % (Auto) 8.0 H (0.0-7.3) % [place] # (Auto) 1.2 H (0.0-0.8) K/mm3 Seg Neutrophils % 76.7 H (40.0-70.0) % Seg Neutrophils # 11.2 H (1.8-7.7) K/mm3 BUN 3 L (7-17) mg/dL Creatinine 0.5 L (0.6-1.2) mg/dL Calcium 8.3 L (8.4-10.2) mg/dL Total Protein 6.1 L (6.3-8.2) g/dL Albumin 3.2 L (3.9-5) g/dL
[2022-07-27] MEDS: FAMOTIDINE 20 MG/2 ML INJ IV SCH (23:40)
[2022-07-28] MEDS ORDERED: TETANUS,DIPH,PERTUSS(ACELL) VACCINE 0.5 ML SYRINGE IM ONE (06:00)
--- NOTE | 2022-07-28 09:15 | Progress Note ---
Assessment and Plan - Patient Problems (1) 38 weeks gestation of Current Visit: Yes Status: Acute (2) , delivered Current Visit: Yes Status: Acute Plan to address problem: Continue post vaginal delivery pathway (3) Midepigastric pain Current Visit: Yes Status: Resolved Plan to address problem: Will allow clear liquids today and INT IV. Possibly allow home tomorrow if she continues to be stable. Subjective - Subjective Date of service: 07/28/22 Principal diagnosis: PPD#1 , s/p evaluation for severe midepigastric pain Interval history: Patient is resting in bed she denies any abdominal pain. Minimal lochia. She states she is doing very well. Patient reports: voiding normally, pain well controlled, flatus Objective - Vital Signs Latest vital signs: Vital Signs Temp Pulse Resp BP Pulse Ox Pulse Ox 07/28/22 03:19 98.8 F 74 20 107/68 97 07/27/22 20:45 99 07/27/22 15:27 97.8 F 79 20 110/75 94 07/27/22 11:15 99 07/27/22 10:09 61 118/72 07/27/22 10:07 60 100 07/27/22 10:02 62 99 07/27/22 09:57 76 100 07/27/22 09:52 68 100 07/27/22 09:47 63 99 07/27/22 09:42 64 100 07/27/22 09:37 73 100 07/27/22 09:32 59 L 100 07/27/22 09:30 67 89 07/27/22 09:27 70 100 07/27/22 09:22 63 98 07/27/22 09:17 73 99 Intake and Output 07/27/22 07/28/22 07/28/22 22:59 06:59 14:59 Intake Total 480 240 Output Total 400 1200 Balance 80 -960 Intake: Oral 480 240 Output: Urine 400 1200 Void 400 1200 Other: Total, Intake Amount 360 240 Total, Output Amount 400 600 # Voids Void 700 1 - Exam Breasts: Present: normal Cardiovascular: Present: Regular rate Lungs: Present: Clear to auscultation, Normal air movement Abdomen: Present: normal appearance, soft, normal bowel sounds. Absent: distention, tenderness, guarding Uterus: Present: normal, firm, fundal height below umbilicus (2 fingerbreadths). Absent: tenderness Extremities: Present: normal - Labs Labs: Abnormal lab results 07/27/22 07/27/22 07/27/22 Range/Units 20:18 21:29 Unknown WBC 14.7 H (4.5-11.0) K/mm3 RDW 12.8 L 13.0 L (13.2-15.2) % [place] % (Auto) 8.0 H (0.0-7.3) % [place] # (Auto) 1.2 H (0.0-0.8) K/mm3 Seg Neutrophils % 76.7 H (40.0-70.0) % Seg Neutrophils # 11.2 H (1.8-7.7) K/mm3 BUN 3 L (7-17) mg/dL Creatinine 0.5 L (0.6-1.2) mg/dL Calcium 8.3 L (8.4-10.2) mg/dL Total Protein 6.1 L (6.3-8.2) g/dL Albumin 3.2 L (3.9-5) g/dL
[2022-07-28] MEDS: ACETAMINOPHEN 500 MG TAB PO PRN ×2 (11:48→23:26)
[2022-07-28] MEDS: PRENATAL VIT27-FE FUMARATE-FOLIC ACID VIT TAB PO SCH (11:49)
[2022-07-28] MEDS: FAMOTIDINE 20 MG/2 ML INJ IV SCH (18:28)
[2022-07-29] MEDS: ACETAMINOPHEN 500 MG TAB PO PRN ×2 (06:17→11:53)
--- NOTE | 2022-07-29 08:38 | Discharge Summary ---
Providers - Providers Date of Admission: 07/27/22 07:54 Date of discharge: 07/29/22 Attending physician: LUCIANA LIM 07/28/22 17:40 Consult to Case Management [CONS] Routine Services Needed at Discharge: Dye Weigher Notified:: no Additional Physician Instructions: Mother positive THC. Primary care physician: LUCIANA LIM Hospitalization Reason for admission: active labor Delivery: Procedure: other () Procedure details: see delivery notes Episiotomy: other (see delivery notes) Laceration: other (see delivery notes) Other procedures: none complications: none Discharge diagnosis: IUP at term delivered, [place] baby: female Hospital course: Pt s/p .She had pp course that was complicated by post delivery pain that has since resolved. She does desire d/c home today. Condition at discharge: Good Disposition: 01 HOME / SELF CARE / HOMELESS - Discharge Diagnoses (1) , delivered Status: Acute Plan - Provider Discharge Summary Activity: routine, no sex for 6 weeks, no heavy lifting 4 weeks, no strenuous exercise Diet: routine Instructions: routine Additional instructions: [] Smoking cessation referral if applicable(refer to patient education folder for contact #) [] Refer to [facility] Booklet Call your doctor immediately for: * Fever > 100.5 * Heavy vaginal bleeding ( >1 pad per hour) * Severe persistent headache * Shortness of breath * Reddened, hot, painful area to leg or breast * Drainage or odor from incision. * Keep incision clean and dry at all times and follow doctor's instructions regarding bathing/showering - Follow up plan Follow up: LUCIANA LIM MD [Primary Care Provider] - 7 Days Forms: [facility] Discharge Summary
[2022-07-29] MEDS: FAMOTIDINE 20 MG/2 ML INJ IV SCH (09:34)
[2022-07-29] MEDS: PRENATAL VIT27-FE FUMARATE-FOLIC ACID VIT TAB PO SCH (09:50)
[2022-07-29 14:46] VITALS: BP 107/69
== END 2022-07-29 16:20 | disposition home or self-care (01) | DRG 775 ==
LOC: TRG 07:53 → LD 07:54 → TRG 09:58 → OB 11:07
PROVIDERS: ADMIT Obstetrics & Gynecology; ATTEND Obstetrics & Gynecology
PROC: 10E0XZZ Delivery of Products of Conception, External Approach (ICD-10-PCS; principal; 2022-07-27)
PROC: 3E0234Z Introduction of Serum, Toxoid and Vaccine into Muscle, Percutaneous Approach (ICD-10-PCS; 2022-07-28)
DX: O34.211 Maternal care for low transverse scar from previous cesarean delivery (principal); Z3A.38 38 weeks gestation of pregnancy; Z37.0 Single live birth; Z88.5 Allergy status to narcotic agent; Z20.822 Contact with and (suspected) exposure to COVID-19
CPT/HCPCS: 36415; 74177; 80053; 80307; 85014; 85018; 85025; 85027; 86592; 86706; 86762; 86803; 86850; 86900; 86901; 87806; G0378; J3490; J1200; J2210; J2590; Q9967; U0003